=== PATIENT | male | born 1980 | race Caucasian/White ===

== ENCOUNTER 2021-02-28 06:11 | Emergency (ER) | payer OTHER, SELFPAY ==
[2021-02-28] VITALS (10 sets, daily range): BP systolic 120–135; BP diastolic 73–83; PULSE 71–103; RESP 14–25; TEMP 37.1; O2SAT 96–100; BMI 19.0
[2021-02-28] MEDS: HYDROMORPHONE 0.5 MG INJ (06:20)
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
[2021-02-28 06:30] LABS: Add Manual Diff / Slide Review NO; Basophils Absolute Auto 100 /uL (0-100); Basophils Percent Auto 0.7 % (0-2); Eosinophils Absolute Auto 300 /uL (0-450); Hematocrit 40.7 % (41-53); Hemoglobin 13.3 g/dL (13.5-17.5); Lymphocytes Absolute Auto 1800 /uL (1100-4500); Lymphocytes Percent Auto 20.9 % (25-40); Mean Corpuscular HGB Conc 32.6 % (30-36); Mean Corpuscular Hemoglobin 28.6 PG (26-34); Mean Corpuscular Volume 87.7 fL (80-100); Monocytes Absolute Auto 600 /uL (0-900); Monocytes Percent Auto 7.6 % (3-14); Neutrophils Absolute Auto 5700 /uL (1500-7000); Neutrophils Percent Auto 67.8 % (50-75); Platelet Count 220 X10^3/uL (150-400); Red Blood Cell Count 4.64 X10^6/uL (4.5-5.9); Red Cell Distribution Width 14.1 % (11.6-14.8); White Blood Cell Count 8.4 X10^3/uL (4.5-11.0)
[2021-02-28 06:38] LABS: Alanine Aminotransferase 29 IU/L (<50); Albumin 4.2 g/dL (3.5-5.0); Albumin Globulin Ratio 1.4 (1.0-2.8); Alkaline Phosphatase 121 U/L (38-126); Aspartate Aminotransferase 59 IU/L (17-59); Bilirubin Total 0.4 mg/dL (0.2-1.3); Blood Urea Nitrogen 19 mg/dL (9-20); Calcium 9.2 mg/dL (8.4-10.2); Carbon Dioxide 30 mmol/L (22-32); Chloride 104 mmol/L (98-107); Creatine Kinase 315 U/L (55-170); Estimated Glomerular Filt Rate > 60.0 mL/min (>60); Ethanol (ETOH) < 10 mg/dL; Globulin 2.9 g/dL (1.7-4.1); Glucose 105 mg/dL (70-100); HEMOLYSIS < 15 (0-50); Lipase 87 U/L (23-300); Potassium 4.4 mmol/L (3.4-5.1); Sodium 137 mmol/L (137-145); Total Protein 7.1 g/dL (6.3-8.2)
--- NOTE | 2021-02-28 06:48 | PC.NURSE ---
Fast exam performed by provider at 0620.
[2021-02-28 06:50] LABS: Troponin I < 0.012 ng/mL (0.01-0.034)
[2021-02-28 06:53] LABS: CKMB % Relative Index 1.5 % (1.5-5.0); Creatine Kinase MB 4.78 ng/mL (<2.37)
--- NOTE | 2021-02-28 08:43 | PC.NURSE ---
Patient gave permission to speak with Gabrielle (girlfriend). She will be here by 0945 to take patient home.
--- NOTE | 2021-02-28 09:55 | PC.NURSE ---
Patient in pain but falls back to sleep quickly. Requires coaching to facilitate getting dressed.
[2021-02-28] MEDS: KETOROLAC 30 MG/ML VIAL 15 MG IV (10:11)
== END 2021-02-28 10:15 | disposition home or self-care (01) ==
PROVIDERS: Emergency Provider Emergency Medicine
DX: S42.025A Nondisplaced fracture of shaft of left clavicle, initial encounter for closed fracture (principal); S22.32XA Fracture of one rib, left side, initial encounter for closed fracture; S00.83XA Contusion of other part of head, initial encounter; V89.2XXA Person injured in unspecified motor-vehicle accident, traffic, initial encounter
CPT/HCPCS: 70450; 71045; 71260; 72125; 72170; 74177; 80053; 80320; 82550; 82553; 83690; 84484; 85025; 96374; 99284; 99285; J1170; J1885; Q9967

== ENCOUNTER 2021-03-22 15:42 | Emergency (ER) | payer OTHER, SELFPAY ==
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
[2021-03-22 15:59] VITALS: BP 125/70; PULSE 70; RESP 16; TEMP 36.7; O2SAT 99
== END 2021-03-22 16:20 | disposition home or self-care (01) ==
PROVIDERS: Emergency Provider Emergency Medicine
DX: Z02.9 Encounter for administrative examinations, unspecified (principal); S42.002D Fracture of unspecified part of left clavicle, subsequent encounter for fracture with routine healing
CPT/HCPCS: 99281